=== PATIENT | female | born 1990 | race Two or more races ===

== ENCOUNTER 2016-08-03 17:29 | Emergency (ER) | payer MEDICAID ==
[~2016-08-03] VITALS: Ht 152.4 cm; Wt 65.8 kg
[2016-08-03 17:45] VITALS: BP 104/65
== END 2016-08-03 21:22 | disposition left against medical advice (07) ==
LOC: ER 17:32
DX: R10.9 Unspecified abdominal pain (principal); R11.0 Nausea; R19.7 Diarrhea, unspecified; Z53.21 Procedure and treatment not carried out due to patient leaving prior to being seen by health care provider
CPT/HCPCS: 93005